=== PATIENT | male | born 1935 | race Asian ===

== ENCOUNTER 2018-10-23 08:01 | Inpatient (IN) | payer MEDICARE, MEDICAID ==
[~2018-10-23] VITALS: Ht 162.6 cm; Wt 56.9 kg
[2018-10-23] MEDS ORDERED: ATORVASTATIN CA20 MG ORAL (08:06)
[2018-10-23] MEDS ORDERED: TAMSULOSIN HCL0.4 MG ORAL (08:06)
[2018-10-23] MEDS ORDERED: WARFARIN SODIUM3 MG ORAL (08:06)
[2018-10-23] MEDS ORDERED: DONEPEZIL HCL5 MG ORAL (08:06)
[2018-10-23] MEDS ORDERED: LOSARTAN POTASS50 MG ORAL (08:06)
[2018-10-23] MEDS ORDERED: PRILOSEC OTC20 MG ORAL (08:06)
[2018-10-23] MEDS ORDERED: PROSCAR5 MG ORAL (08:06)
[2018-10-23] MEDS ORDERED: AMLODIPINE BESY10 MG ORAL (08:06)
[2018-10-23] MEDS ORDERED: ZETIA10 MG ORAL (08:06)
[2018-10-23 08:07] VITALS: BP 148/65
--- NOTE | 2018-10-23 08:13 | NUR ---
ED Nurse Note: Patient Brought in to ER by ambulance from home due to SOB. pt is restless with SOB upon arrival but aao x4. pt has pacemaker on Lt upper chest, skin dry but no pressure ulcer or wound, has O2 mask with 4L/min O2 administrating, 20 G iv on Lt forearm by EMS. VSS. at bedside.
--- NOTE | 2018-10-23 08:20 | Emergency Room Report ---
History of Present Illness General Chief Complaint: Dyspnea/Respdistress Source: Patient, Family Member, EMS Present Illness HPI Patient presents with complaints of shortness of breath Patient was at home and his was leaving when she noticed that he was breathing heavier than usual and contacted the paramedics reports that the patient just recently about 1 month ago had a pacemaker put in Family and the patient himself did not recognize the word of atrial fibrillation also did not think that the patient has history of irregular heart rate however patient is on Coumadin and appears to be in atrial fibrillation at this time denies any other chest pain his breathing is worse with laying flat Denies any cough denies any vomiting or diarrhea denies any recent travel denies any pleurisy Allergies: Coded Allergies: No Known Allergies (Unverified , 10/23/18) Patient History Past Medical History: see triage record Pertinent Family History: none Reviewed Nursing Documentation: PMH: Agreed; PSxH: Agreed Nursing Documentation-PMH Past Medical History: No History, Except For Hx Cardiac Problems: Yes Hx Pacemaker: Yes Hx COPD: Yes Review of Systems All Other Systems: negative except mentioned in HPI Physical Exam Vital Signs Date Time Temp Pulse Resp B/P (MAP) Pulse Ox O2 Delivery O2 Flow Rate FiO2 10/23/18 07:58 98.1 64 20 136/58 99 Room Air 10/23/18 08:07 4.0 100 Sp02 EP Interpretation: reviewed, normal General Appearance: mild distress - Appears short of breath tachypneic Head: normocephalic, atraumatic Eyes: bilateral eye PERRL, bilateral eye EOMI ENT: hearing grossly normal, normal pharynx, TMs + canals normal, uvula midline Neck: full range of motion, supple, no meningismus, no bony tend Respiratory: no rhonchi, no respiratory distress, no retraction, no accessory muscle use, crackles - Bilaterally and tachypneic Cardiovascular #1: normal peripheral pulses, no gallop, no JVD, no murmur, irregularly irregular Gastrointestinal: normal bowel sounds, non tender, soft, no mass, no organomegaly, non-distended, no guarding, no hernia, no pulsatile mass, no rebound Genitourinary: no CVA tenderness Musculoskeletal: normal inspection Neurologic: oriented x3, responsive, residential coordinator III-XII nml as tested, motor strength/ tone normal, sensory intact Psychiatric: mood/affect normal Skin: no rash, warm/dry, other Lymphatic: normal inspection, no adenopathy Procedures Critical Care Time Critical Care Time 40 minutes for multiple re-evaluations, clinical presentation was concern for respiratory failure not including any procedural time Medical Decision Making Diagnostic Impression: Primary Impression: Dyspnea Additional Impressions: CHF (congestive heart failure) COPD (chronic obstructive pulmonary disease) ER Course Patient is a fairly complex patient with multiple differential to consideration including but not limited to cardiac cardiopulmonary and vascular emergencies Patient's ABG does reveal mildly low pH with a mildly elevated PCO2 consistent with COPD exacerbation X-ray imaging also shows significant effusion cardiomegaly Patient was provided with diuretics BiPAP was initiated and as the patient has done better was removed Patient will be admitted to telemetry bed and examined by process architect in the ER Labs Test 10/23/18 08:30 10/23/18 08:35 White Blood Count 7.1 K/UL (4.8-10.8) Red Blood Count 3.37 M/UL (4.70-6.10) Hemoglobin 10.2 G/DL (14.2-18.0) Hematocrit 31.8 % (42.0-52.0) Mean Corpuscular Volume 94 FL (80-99) Mean Corpuscular Hemoglobin 30.3 PG (27.0-31.0) Mean Corpuscular Hemoglobin Concent 32.1 G/DL (32.0-36.0) Red Cell Distribution Width 15.9 % (11.6-14.8) Platelet Count 177 K/UL (150-450) Mean Platelet Volume 8.0 FL (6.5-10.1) Neutrophils (%) (Auto) 60.1 % (45.0-75.0) Lymphocytes (%) (Auto) 26.4 % (20.0-45.0) Monocytes (%) (Auto) 10.6 % (1.0-10.0) Eosinophils (%) (Auto) 2.0 % (0.0-3.0) Basophils (%) (Auto) 1.0 % (0.0-2.0) Prothrombin Time 74.0 SEC (9.30-11.50) Prothromb Time International Ratio 7.8 (0.9-1.1) Activated Partial Thromboplast Time 55 SEC (23-33) Sodium Level 137 MMOL/L (136-145) Potassium Level 4.3 MMOL/L (3.5-5.1) Chloride Level 103 MMOL/L (98-107) Carbon Dioxide Level 24 MMOL/L (21-32) Anion Gap 11 mmol/L (5-15) Blood Urea Nitrogen 24 mg/dL (7-18) Creatinine 1.6 MG/DL (0.55-1.30) Estimat Glomerular Filtration Rate mL/min (>60) Glucose Level 101 MG/DL (74-106) Calcium Level 8.9 MG/DL (8.5-10.1) Total Bilirubin 1.5 MG/DL (0.2-1.0) Direct Bilirubin 0.4 MG/DL (0.0-0.3) Aspartate Amino Transf (AST/SGOT) 24 U/L (15-37) Alanine Aminotransferase (ALT/SGPT) 11 U/L (12-78) Alkaline Phosphatase 178 U/L (46-116) Total Creatine Kinase 137 U/L (26-308) Creatine Kinase MB 2.7 NG/ML (0.0-3.6) Creatine Kinase MB Relative Index 1.9 Troponin I 0.015 ng/mL (0.000-0.056) Pro-B-Type Natriuretic Peptide 3472 pg/mL (0-125) Total Protein 8.0 G/DL (6.4-8.2) Albumin 3.6 G/DL (3.4-5.0) Globulin 4.4 g/dL Albumin/Globulin Ratio 0.8 (1.0-2.7) Lipase 225 U/L (73-393) Arterial Blood pH 7.288 (7.350-7.450) Arterial Blood Partial Pressure CO2 49.8 mmHg (35.0-45.0) Arterial Blood Partial Pressure O2 37.0 mmHg (75.0-100.0) Arterial Blood HCO3 23.3 mmol/L (22.0-26.0) Arterial Blood Oxygen Saturation 61.9 % (95-100) Arterial Blood Base Excess -3.5 (-2-2) [place] Test Positive EKG Diagnostic Results Rate: bradycardiac Rhythm: other ST Segments: other - Irregularly irregular, nonspecific ST changes Rhythm Strip Diag. Results EP Interpretation: yes Rate: 56 Rhythm: no PVC's, no ectopy, other - Atrial fibrillation Chest X-Ray Diagnostic Results Chest X-Ray Diagnostic Results : Chest X-Ray Ordered: Yes # of Views/Limited/Complete: 1 View Indication: Shortness of Breath EP Interpretation: Yes Interpretation: no pneumothorax, other - Cardiomegaly, pulmonary congestion , large right-sided effusion Impression: Other - Acute CHF, large effusion Electronically Signed by: Abdoul Toussaint DO Last Vital Signs Date Time Temp Pulse Resp B/P (MAP) Pulse Ox O2 Delivery O2 Flow Rate FiO2 10/23/18 08:07 98.1 59 20 148/65 99 Room Air 4.0 10/23/18 08:07 100 Status: improved Disposition: ADMITTED INPATIENT Condition: Critical Referrals: NON PHYSICIAN (PCP) Abdoul Toussaint DO Oct 23, 2018 08:20
--- NOTE | 2018-10-23 08:28 | NUR ---
ED Nurse Note: New iv line made with 20G on Rt wrist for blood culture.
[2018-10-23 08:37] LABS: HEMATOCRIT 31.8 % (42.0-52.0); HEMOGLOBIN 10.2 G/DL (14.2-18.0); LYMPHOCYTES % (AUTO) 26.4 % (20.0-45.0); MEAN CORPUSCULAR VOLUME 94 FL (80-99); MONOCYTES % (AUTO) 10.6 % (1.0-10.0); NEUTROPHILS % (AUTO) 60.1 % (45.0-75.0); PLATELET COUNT 177 K/UL (150-450); RED BLOOD COUNT 3.37 M/UL (4.70-6.10); RED CELL DISTRIBUTION WIDTH 15.9 % (11.6-14.8); WHITE BLOOD COUNT 7.1 K/UL (4.8-10.8)
[2018-10-23 08:53] LABS: ANION GAP 11 mmol/L (5-15); BLOOD UREA NITROGEN 24 mg/dL (7-18); CALCIUM 8.9 MG/DL (8.5-10.1); CARBON DIOXIDE 24 MMOL/L (21-32); CHLORIDE 103 MMOL/L (98-107); CREATININE 1.6 MG/DL (0.55-1.30); POTASSIUM 4.3 MMOL/L (3.5-5.1); SODIUM 137 MMOL/L (136-145)
[2018-10-23 09:14] LABS: ALANINE AMINOTRANSFERASE 11 U/L (12-78); ALBUMIN 3.6 G/DL (3.4-5.0); ALBUMIN/GLOBULIN RATIO 0.8 (1.0-2.7); ALKALINE PHOSPHATASE 178 U/L (46-116); ASPARTATE AMINO TRANSFERASE 24 U/L (15-37); BILIRUBIN,TOTAL 1.5 MG/DL (0.2-1.0); CREATINE KINASE 137 U/L (26-308)
[2018-10-23 09:15] LABS: BILIRUBIN,DIRECT 0.4 MG/DL (0.0-0.3)
[2018-10-23 09:35] LABS: CKMB 2.7 NG/ML (0.0-3.6)
[2018-10-23 09:52] LABS: INR 7.8 (0.9-1.1)
--- NOTE | 2018-10-23 10:06 | NUR ---
ED Nurse Note: RT put pt on Bipap. setting was documented.
--- NOTE | 2018-10-23 10:56 | NUR ---
ED Nurse Note: Bipap removed and pt is on NC 3L/min and sturating 100%.
--- NOTE | 2018-10-23 11:00 | NUR ---
ED Nurse Note: Report given to LOLIS Franco. pt is ready to be transferred.
[2018-10-23 11:14] VITALS: BP 125/74
--- NOTE | 2018-10-23 11:16 | NUR ---
ED Nurse Note: Pt was transferred to Telemetry unit with 1 airframe technical officer and 1 RN in stable condition.
--- NOTE | 2018-10-23 11:20 | NUR ---
NURSE NOTES: I received patient from the ER. Patient alert and oriented x4. Patient's belongings reviewed and verified with ER nurse. Patient oriented to room and the use of the call light. Bed in the lowest position and call light within reach. Patient does not display any signs of distress or SOB.
[2018-10-23 11:35] VITALS: BP 130/62
--- NOTE | 2018-10-23 11:48 | Diagnostic Imaging Report ---
Indication: Dyspnea Comparison: None A single view chest radiograph was obtained. Findings: Interstitial edema prominent vascularity and heart size noted. Left-sided pacemaker and sternotomy are noted. There is a right pleural effusion which may be partially loculated. There is a horizontal density about the minor fissure probably representing fluid in the fissure. Slight blunting of the left costophrenic angle also noted. IMPRESSION: CHF/interstitial edema. Suspected bilateral pleural effusions as described above
--- NOTE | 2018-10-23 13:58 | Consultation ---
Consult Note Consult Note asked to eval by Dr Mobley for renal failure- Patient presents with complaints of shortness of breath Patient was at home and his was leaving when she noticed that he was breathing heavier than usual and contacted the paramedics reports that the patient just recently about 1 month ago had a pacemaker put in Family and the patient himself did not recognize the word of atrial fibrillation also did not think that the patient has history of irregular heart rate however patient is on Coumadin and appears to be in atrial fibrillation at this time denies any other chest pain his breathing is worse with laying flat Denies any cough denies any vomiting or diarrhea denies any recent travel denies any pleurisy No Known Allergies (Unverified , 10/23/18) Past Medical History: No History, Except For Hx Cardiac Problems: Yes Hx Pacemaker: Yes Hx COPD: Yes patient examined data reviewed Assessment/Plan Renal failure- ? Chronic / Cardio Renal Pacer CHF COPD Anemia Over anti coagulation, INR 7.8 Lasix Protonix monitor INR parameters for bp meds UA 2D echo Anemia Seferino Tafoya MD Oct 23, 2018 13:58
[2018-10-23 14:15] VITALS: BP 118/61
[2018-10-23 16:00] VITALS: BP 126/58
[2018-10-23 18:10] LABS: APPEARANCE,URINE CLEAR; BILIRUBIN, URINE NEGATIVE (NEGATIVE); COLOR,URINE PALE YELLOW; GLUCOSE, URINE (UA) NEGATIVE (NEGATIVE); KETONES,URINE NEGATIVE (NEGATIVE); NITRITE,URINE NEGATIVE (NEGATIVE); PROTEIN,URINE NEGATIVE (NEGATIVE); UROBILINOGEN,URINE NORMAL MG/DL (0.0-1.0)
--- NOTE | 2018-10-23 18:19 | NUR ---
CASE MANAGEMENT: INITIAL REVIEW 83 YO M PABLO FROM HOME CC: SOB PMHx: COPD. PACER. SI: DYSPNEA. T 98.1 HR 64 RR 20 B/P 136/58 SATS 99% ON RA BUN 24 CR 1.6 TBILI 1.5 DBILI 0.4 ALT 11 ALP 178 BNP 3472 ABGs PH 7.288 pCO2 49.8 PO2 37 O2 SAT 61.9 BE -3.5 IS:CXR (IMPRESSION: CHF/interstitial edema) PATIENT ADMITTED TO TELE 10/23/2018 @ 0834 DCP: PATIENT TO BE DISCHARGED TO HOME ONCE MEDICALLY CLEARED. PLAN OF CARE: DIURESIS UA 2D echo Addendum: 10/23/18 at 1909 by Adry Locke CM INTERQUAL MET FOR ACUTE
[2018-10-23 18:22] LABS: LEUKOCYTE ESTERASE ,URINE NEGATIVE (NEGATIVE); PH,URINE 5 (4.5-8.0)
--- NOTE | 2018-10-23 19:15 | History and Physical Report ---
DATE OF ADMISSION: 10/23/2018 HISTORY OF PRESENT ILLNESS: This is a very pleasant 83-year-old male who has a history of lung cancer. His daughter at bedside reports that he has previously had two lung surgeries. She is unclear about which side, but she states that it was in 2010 and 2012. The lung cancer apparently is in remission. The patient reports that he had a pacemaker placed on the left side of the chest and that he has not been on Coumadin. He came to the hospital with shortness of breath. His initial venous ABGs showed pH 7.28 with pCO2 50. At this time, he states he is feeling well. X-ray of the chest has shown right-sided effusion and evidence of previous right lung surgery. He also has elevated BNP suggestive of heart failure. PAST MEDICAL HISTORY: Notable for permanent pacemaker, COPD, lung cancer, CHF. PREVIOUS SURGICAL HISTORY: Include pacemaker implantation and x2. REVIEW OF SYSTEMS: The patient denies any headaches, hematemesis, melena, or hematochezia. PHYSICAL EXAMINATION: GENERAL: Revealed an 83-year-old male. HEENT: Unremarkable. CHEST: Exam showed decreased breath sounds bilaterally with decreased breath sounds on the right side. ABDOMEN: Soft. EXTREMITIES: There is no edema. NEUROLOGIC: Nonfocal. LABORATORY DATA: Lab testing shows hemoglobin 10.2, creatinine 1.6, bilirubin 1.5. Alkaline phosphatase 178, ALT 11. ProBNP is elevated. Troponin is negative. ABG/venous gas shows 7.28, pCO2 49, and pO2 37. IMPRESSION: 1. Decompensated congestive heart failure. 2. History of lung cancer. 3. COPD. 4. Renal insufficiency. 5. Permanent pacemaker. 6. Chronic Coumadin usage. DISCUSSION: Admitted to the hospital. I will continue his home medications. We will increase diuresis, consider BiPAP. We will consult Cardiology, may give low-dose steroids and respiratory treatments with albuterol and Atrovent. We will follow carefully. Jaydon Mobley M.D. DR: LASHAY/HERSON JOB#: [id number] CC:
--- NOTE | 2018-10-23 19:20 | NUR ---
NURSE NOTES: Received pt. and report from LOLIS Franco. Observe pt. resting in bed with both eyes open. Pt. is A/Ox4. monitoring and evaluation advisor is in placed, IV site intact, asymptomatic, and patent. Bed is in the lowest position and locked. Call light within reach. No SOB or acute distress noted at this time. Will continue plan of care.
--- NOTE | 2018-10-23 19:30 | NUR ---
HAND-OFF: Report given to LOLIS Tenorio.
[2018-10-23 20:00] VITALS: BP 130/59
[2018-10-23] MEDS: Tamsulosin 0.4mg cap ORAL SCH (20:53)
[2018-10-24] VITALS (7 sets, daily range): BP systolic 119–136; BP diastolic 56–75
--- NOTE | 2018-10-24 06:00 | Consultation ---
DATE OF CONSULTATION: 10/23/2018 CARDIOLOGY CONSULTATION CONSULTING PHYSICIAN: Charles Jarvis M.D. REASON FOR CONSULTATION: Shortness of breath. HISTORY OF PRESENT ILLNESS: This is an 83-year-old male with lung cancer and prior pneumonectomy, who is now in remission. He came to the emergency room with shortness of breath. He was noted to have an abnormal ABG with respiratory acidosis and an abnormal chest x-ray revealing a right-sided pleural effusion and loss of volume on the right, and natriuretic peptide assay over 1600, suggesting congestive heart failure. I have been asked to address all his findings and further management for his shortness of breath. The patient is without any chest pain, without any palpitations, and has not had any leg swelling. PAST MEDICAL HISTORY: COPD, lung cancer, permanent pacemaker, hypertension, congestive heart failure, chronic kidney disease, and paroxysmal atrial fibrillation. ALLERGIES: None known. MEDICATIONS: Prior to admission, reviewed and reconciled. SOCIAL HISTORY: Prior smoker. No alcohol or substance abuse. REVIEW OF SYSTEMS: Otherwise, a 10-point review of systems performed that revealed positive findings as noted above, otherwise negative. PHYSICAL EXAMINATION: VITAL SIGNS: Afebrile, blood pressure 136/58, pulse 64, and respiratory rate 20. HEENT: Conjunctivae are pink. Oropharynx clear. NECK: Supple. Jugular venous pressure elevated. No accessory muscle use. LUNGS: Diminished breath sounds. Scattered rales. CARDIAC: Regular rhythm and rate. Normal S1, paradoxically split S2. A 1/6 systolic apical murmur. ABDOMEN: Soft and nontender. EXTREMITIES: No edema. LABORATORY DATA: White count 7.1 and hemoglobin 10.2. INR 7.8. Sodium 137, potassium 4.3, bicarbonate 24, BUN 24, and creatinine 1.6. ABG - 7.29, 49, and 37. Pro-natriuretic peptide 3400. Troponin negative. EKG is a paced rhythm. IMPRESSION: 1. Acute bronchospasm. 2. Asthma exacerbation. 3. Acute on chronic diastolic congestive heart failure. 4. Permanent pacemaker. 5. Paroxysmal atrial fibrillation. 6. Coagulopathy due to warfarin. PLAN: Hold warfarin, re-dose INR 2.5. Diuresis. Titrate anti-failure regimen. Empiric antibiotics. Respiratory hygiene. We will attempt to obtain data regarding pacemaker interrogation device. Thank you for this consultation. Charles Jarvis M.D. DR: MARTHA JOB#: [id number] CC:
[2018-10-24 07:10] LABS: INR 6.6 (0.9-1.1)
--- NOTE | 2018-10-24 07:18 | NUR ---
HAND-OFF: Report given to LOLIS Franco.
--- NOTE | 2018-10-24 07:22 | NUR ---
NURSE NOTES: Received INR (6.6) result from lab, [facility]. INR is trending down. Endorsed to LOLIS Franco.
--- NOTE | 2018-10-24 07:25 | NUR ---
NURSE NOTES: I received the patient awake and eating breakfast in bed. Patient alert and oriented x4. Patient does not display any signs of distress or SOB. Bed in the lowest position and call light within reach. I will continue to monitor the patient and implement care.
[2018-10-24 07:36] LABS: BASOPHILS % (AUTO) 1.3 % (0.0-2.0); EOSINOPHILS % (AUTO) 2.9 % (0.0-3.0); HEMATOCRIT 29.5 % (42.0-52.0); HEMOGLOBIN 9.7 G/DL (14.2-18.0); LYMPHOCYTES % (AUTO) 21.1 % (20.0-45.0); MEAN CORPUSCULAR VOLUME 94 FL (80-99); MONOCYTES % (AUTO) 10.1 % (1.0-10.0); NEUTROPHILS % (AUTO) 64.5 % (45.0-75.0); PLATELET COUNT 184 K/UL (150-450); RED BLOOD COUNT 3.13 M/UL (4.70-6.10); RED CELL DISTRIBUTION WIDTH 15.8 % (11.6-14.8); WHITE BLOOD COUNT 6.2 K/UL (4.8-10.8)
[2018-10-24 07:42] LABS: % IRON SATURATION 13 % (15-50); IRON 34 ug/dL (50-175); TOTAL IRON BINDING CAPACITY 262 ug/dL (250-450)
[2018-10-24 07:44] LABS: ALANINE AMINOTRANSFERASE 16 U/L (12-78); ALBUMIN 3.3 G/DL (3.4-5.0); ALBUMIN/GLOBULIN RATIO 0.8 (1.0-2.7); ALKALINE PHOSPHATASE 172 U/L (46-116); ANION GAP 7 mmol/L (5-15); ASPARTATE AMINO TRANSFERASE 24 U/L (15-37); BILIRUBIN,TOTAL 1.1 MG/DL (0.2-1.0); BLOOD UREA NITROGEN 25 mg/dL (7-18); CALCIUM 9.1 MG/DL (8.5-10.1); CARBON DIOXIDE 29 MMOL/L (21-32); CHLORIDE 103 MMOL/L (98-107); CHOLESTEROL 98 MG/DL (< 200); CREATINE KINASE 108 U/L (26-308); CREATININE 1.7 MG/DL (0.55-1.30); FERRITIN 66 NG/ML (8-388); GAMMA GLUTAMYL TRANSPEPTIDASE 81 U/L (5-85); HDL CHOLESTEROL 51 MG/DL (40-60); PHOSPHORUS 3.9 MG/DL (2.5-4.9); POTASSIUM 4.4 MMOL/L (3.5-5.1); SODIUM 139 MMOL/L (136-145); TRIGLYCERIDES 36 MG/DL (30-150)
[2018-10-24 07:46] LABS: BILIRUBIN,DIRECT 0.3 MG/DL (0.0-0.3)
[2018-10-24] MEDS: Donepezil 5mg Tab ORAL SCH (08:21)
[2018-10-24] MEDS: Losartan 50mg tab ORAL SCH (08:21)
[2018-10-24] MEDS ORDERED: Warfarin Sodium 3mg ORAL SCH (09:00)
[2018-10-24] MEDS ORDERED: Losartan 50mg tab ORAL SCH (09:00)
--- NOTE | 2018-10-24 09:19 | Pulmonology Progress Note ---
Assessment/Plan Assessment/Plan 1. Decompensated congestive heart failure. 2. History of lung cancer. 3. COPD. 4. Renal insufficiency. 5. Permanent pacemaker. 6. Chronic Coumadin usage. DISCUSSION: I will continue his home medications. Continue diuresis, consider BiPAP (he uses it at home). Seen by cardiology Cardiology Continue low-dose steroids and respiratory treatments with albuterol and Atrovent. I will follow carefully. Monitor coagulopathy Jaydon Mobley M.D. Subjective Interval Events: INR 6.6; feeling better Constitutional: Reports: no symptoms HEENT: Repors: no symptoms Respiratory: Reports: dry cough, shortness of breath Cardiovascular: Reports: no symptoms Gastrointestinal/Abdominal: Reports: no symptoms Genitourinary: Reports: no symptoms Allergies: Coded Allergies: No Known Allergies (Unverified , 10/23/18) Objective Last 24 Hour Vital Signs Date Time Temp Pulse Resp B/P (MAP) Pulse Ox O2 Delivery O2 Flow Rate FiO2 10/24/18 08:22 85 124/75 10/24/18 08:21 124/75 10/24/18 07:55 98.2 85 18 124/75 (91) 95 10/24/18 04:00 97.4 59 18 120/65 (83) 98 10/24/18 04:00 59 10/24/18 00:36 97.2 60 18 130/59 (82) 96 10/24/18 00:00 59 10/24/18 00:00 97.8 60 18 136/63 (87) 97 10/23/18 21:00 Nasal Cannula 3.0 10/23/18 20:00 60 10/23/18 20:00 97.2 60 18 130/59 (82) 96 10/23/18 18:08 63 10/23/18 16:00 97.5 60 21 126/58 (80) 10/23/18 14:15 118/61 (80) 10/23/18 11:50 60 10/23/18 11:35 97.5 60 130/62 (84) 10/23/18 11:26 Nasal Cannula 3.0 10/23/18 11:14 98.1 87 18 125/74 100 Nasal Cannula 3.0 10/23/18 11:14 98.1 61 18 125/74 100 Nasal Cannula 3.0 100 10/23/18 09:45 58 16 100 Facial 100 Intake and Output 10/23/18 10/24/18 19:00 07:00 Intake Total 0 ml Output Total 200 ml Balance -200 ml Intake Oral 0 ml Output Urine Total 200 ml # Voids 3 General Appearance: no acute distress HEENT: normocephalic Respiratory/Chest: chest wall non-tender, lungs clear Cardiovascular: normal peripheral pulses, normal rate Abdomen: normal bowel sounds Laboratory Tests 10/23/18 17:00: Urine Color Pale yellow, Urine Appearance Clear, Urine pH 5, Urine Specific [place] 1.005, Urine Protein Negative, Urine Glucose (UA) Negative, Urine Ketones Negative, Urine Blood Negative, Urine Nitrite Negative, Urine Bilirubin Negative, Urine Urobilinogen Normal, Urine Leukocyte Esterase Negative, Urine RBC 0-2H, Urine WBC 0-2, Urine Squamous Epithelial Cells None, Urine Bacteria Few 10/24/18 04:50: White Blood Count 6.2, Red Blood Count 3.13L, Hemoglobin 9.7L, Hematocrit 29.5L , Mean Corpuscular Volume 94, Mean Corpuscular Hemoglobin 30.9, Mean Corpuscular Hemoglobin Concent 32.8, Red Cell Distribution Width 15.8H, Platelet Count 184, Mean Platelet Volume 5.4L, Neutrophils (%) (Auto) 64.5, Lymphocytes (%) (Auto) 21.1, Monocytes (%) (Auto) 10.1H, Eosinophils (%) (Auto) 2.9, Basophils (%) (Auto) 1.3, Prothrombin Time 62.7H, Prothromb Time International Ratio 6.6*H, Sodium Level 139, Potassium Level 4.4, Chloride Level 103, Carbon Dioxide Level 29, Anion Gap 7, Blood Urea Nitrogen 25H, Creatinine 1.7H, Estimat Glomerular Filtration Rate , Glucose Level 88, Hemoglobin A1c 6.6H, Uric Acid 10.3H, Calcium Level 9.1, Phosphorus Level 3.9, Magnesium Level 1.8, Iron Level 34L, Total Iron Binding Capacity 262, Percent Iron Saturation 13L, Unsaturated Iron Binding 228, Ferritin 66, Total Bilirubin 1.1H, Direct Bilirubin 0.3, Gamma Glutamyl Transpeptidase 81, Aspartate Amino Transf (AST/SGOT) 24, Alanine Aminotransferase (ALT/SGPT) 16, Alkaline Phosphatase 172H, Total Creatine Kinase 108, Troponin I 0.020, Pro-B-Type Natriuretic Peptide 4070H, Total Protein 7.3, Albumin 3.3L, Globulin 4.0, Albumin/Globulin Ratio 0.8L, Triglycerides Level 36, Cholesterol Level 98, LDL Cholesterol 39, HDL Cholesterol 51, Cholesterol/HDL Ratio 1.9L, Vitamin B12 Level 437, Folate 11.1, Thyroid Stimulating Hormone (TSH) 1.249 Current Medications Medications (Trade) Dose Ordered Sig/Jazlyn Route PRN Reason Start Time Stop Time Status Last Admin Dose Admin Amlodipine Besylate (Norvasc) 10 mg DAILY ORAL 10/24/18 09:00 11/23/18 08:59 10/24/18 08:22 Atorvastatin Calcium (Lipitor) 20 mg BEDTIME ORAL 10/23/18 21:00 11/22/18 20:59 10/23/18 20:52 Donepezil HCl (Aricept) 5 mg DAILY ORAL 10/24/18 09:00 11/23/18 08:59 10/24/18 08:21 EZETIMIBE (Zetia) 10 mg BEDTIME ORAL 10/23/18 21:00 11/22/18 20:59 10/23/18 20:53 Finasteride (Proscar) 5 mg DAILY ORAL 10/24/18 09:00 11/23/18 08:59 10/24/18 08:21 Furosemide (Lasix) 40 mg EVERY 8 HOURS IV 10/23/18 14:00 11/22/18 13:59 10/24/18 05:48 Losartan Potassium (Cozaar) 50 mg DAILY ORAL 10/24/18 09:00 11/23/18 08:59 10/24/18 08:21 Pantoprazole (Protonix) 40 mg EVERY 12 HOURS ORAL 10/23/18 21:00 11/22/18 20:59 10/24/18 08:21 Tamsulosin HCl (Flomax) 0.4 mg BEDTIME ORAL 10/23/18 21:00 11/22/18 20:59 10/23/18 20:53 Warfarin Sodium (Coumadin per pharmacy) 1 ea DAILY PRN MISC Per rx protocol 10/23/18 12:00 11/22/18 11:59 Jaydon Mobley MD Oct 24, 2018 09:19
--- NOTE | 2018-10-24 12:34 | NUR ---
RADIOLOGY DEPT CHEST X-RAY DONE.-P.DYE
--- NOTE | 2018-10-24 14:09 | Diagnostic Imaging Report ---
Indication: Cough Technique: One view of the chest Comparison: 10/23/2018 Findings: Bilateral pleural effusions and bilateral interstitial and airspace edema persists, unchanged. The heart is enlarged. Left chest pacemaker again demonstrated Impression: Unchanged, over one day, findings as above.
--- NOTE | 2018-10-24 19:26 | NUR ---
HAND-OFF: Report given to LOLIS Anderson.
--- NOTE | 2018-10-24 20:00 | NUR ---
NURSE NOTES: Received pt in stable condition from Joan DANIELLE. pt in bed resting comfortable, no acute distress during day, no pain reported by pt at this time. will continue to monitor
[2018-10-24] MEDS: Atorvastatin 20mg tab ORAL SCH (20:41)
[2018-10-24] MEDS: Tamsulosin 0.4mg cap ORAL SCH (20:41)
--- NOTE | 2018-10-24 21:41 | Nephrology Progress Note ---
Assessment/Plan Problem List: (1) Renal failure (ARF), acute on chronic (2) CHF (congestive heart failure) (3) Pacemaker (4) Acute bronchospasm Assessment Renal failure- ? Chronic / Cardio Renal Pacer CHF COPD Anemia Over anti coagulation, INR 7.8 Plan Lasix Protonix monitor INR parameters for bp meds UA 2D echo Anemia schmitt IV Iron Subjective ROS Limited/Unobtainable: No Constitutional: Reports: malaise Objective Objective Last 24 Hour Vital Signs Date Time Temp Pulse Resp B/P (MAP) Pulse Ox O2 Delivery O2 Flow Rate FiO2 10/24/18 20:00 98.1 62 20 129/56 (80) 92 10/24/18 20:00 60 10/24/18 16:11 60 10/24/18 15:44 98.1 65 20 119/56 (77) 96 10/24/18 11:59 97.9 60 20 122/56 (78) 93 10/24/18 11:57 69 10/24/18 09:00 Nasal Cannula 3.0 10/24/18 08:22 85 124/75 10/24/18 08:21 124/75 10/24/18 07:55 98.2 85 18 124/75 (91) 95 10/24/18 07:35 60 10/24/18 04:00 97.4 59 18 120/65 (83) 98 10/24/18 04:00 59 10/24/18 00:36 97.2 60 18 130/59 (82) 96 10/24/18 00:00 59 10/24/18 00:00 97.8 60 18 136/63 (87) 97 Intake and Output 10/23/18 10/24/18 18:59 06:59 Intake Total 0 ml Output Total 200 ml Balance -200 ml Intake Oral 0 ml Output Urine Total 200 ml # Voids 3 Laboratory Tests 10/24/18 04:50: White Blood Count 6.2, Red Blood Count 3.13L, Hemoglobin 9.7L, Hematocrit 29.5L , Mean Corpuscular Volume 94, Mean Corpuscular Hemoglobin 30.9, Mean Corpuscular Hemoglobin Concent 32.8, Red Cell Distribution Width 15.8H, Platelet Count 184, Mean Platelet Volume 5.4L, Neutrophils (%) (Auto) 64.5, Lymphocytes (%) (Auto) 21.1, Monocytes (%) (Auto) 10.1H, Eosinophils (%) (Auto) 2.9, Basophils (%) (Auto) 1.3, Prothrombin Time 62.7H, Prothromb Time International Ratio 6.6*H, Sodium Level 139, Potassium Level 4.4, Chloride Level 103, Carbon Dioxide Level 29, Anion Gap 7, Blood Urea Nitrogen 25H, Creatinine 1.7H, Estimat Glomerular Filtration Rate , Glucose Level 88, Hemoglobin A1c 6.6H, Uric Acid 10.3H, Calcium Level 9.1, Phosphorus Level 3.9, Magnesium Level 1.8, Iron Level 34L, Total Iron Binding Capacity 262, Percent Iron Saturation 13L, Unsaturated Iron Binding 228, Ferritin 66, Total Bilirubin 1.1H, Direct Bilirubin 0.3, Gamma Glutamyl Transpeptidase 81, Aspartate Amino Transf (AST/SGOT) 24, Alanine Aminotransferase (ALT/SGPT) 16, Alkaline Phosphatase 172H, Total Creatine Kinase 108, Troponin I 0.020, Pro-B-Type Natriuretic Peptide 4070H, Total Protein 7.3, Albumin 3.3L, Globulin 4.0, Albumin/Globulin Ratio 0.8L, Triglycerides Level 36, Cholesterol Level 98, LDL Cholesterol 39, HDL Cholesterol 51, Cholesterol/HDL Ratio 1.9L, Vitamin B12 Level 437, Folate 11.1, Thyroid Stimulating Hormone (TSH) 1.249 Height (Feet): 5 Height (Inches): 4.00 Weight (Pounds): 160 General Appearance: no apparent distress Cardiovascular: normal rate Respiratory/Chest: decreased breath sounds Abdomen: soft Seferino Lezama MD Oct 24, 2018 21:41
[2018-10-24] MEDS ORDERED: Iron Sucrose 200 MG in NS 110 ML IV SCH (23:00)
[2018-10-25] VITALS: BP 112/51
--- NOTE | 2018-10-25 00:30 | Progress Note ---
DATE: 10/24/2018 CARDIOLOGY PROGRESS NOTE OBJECTIVE: The patient is still short of breath. Diuresis is ongoing with intravenous furosemide. Warfarin is on hold due to elevated INR on admission. OBJECTIVE: VITAL SIGNS: Blood pressure 129/56, pulse 63, and respirations 20. NECK: Jugular venous pressure elevated. LUNGS: Bilateral rales. CARDIAC: Regular rhythm and rate. Normal S1, S2. A 1/6 systolic apical murmur. ABDOMEN: Soft. EXTREMITIES: No edema. IMAGING: Chest x-ray reveals bilateral pleural effusion, interstitial edema unchanged, and left pacemaker. White count 6.2 and hemoglobin 9.7. INR 6.6. Potassium 4.4, BUN 25, and creatinine 1.7. Pro-natriuretic peptide 4000. Cholesterol 98. B12, folate, and thyroid function within normal limits. Iron saturation 13%. Troponin negative. IMPRESSION: 1. Acute on chronic systolic and diastolic congestive heart failure. 2. Paroxysmal atrial fibrillation. 3. Permanent pacemaker. 4. Pleural effusions. 5. Chronic kidney disease. 6. Low lipid panel, on dual anti-lipid therapy. 7. Iron deficiency with anemia. PLAN: 1. Discontinue Zetia. 2. Continue Lipitor. 3. Continue intravenous diuresis. 4. Await echocardiogram. 5. Advance anti-failure regimen. 6. Monitor cardiorenal parameters. 7. Iron replacement. 8. Stool occult blood test. Charles Jarvis M.D. DR: TRENT JOB#: [id number] CC:
--- NOTE | 2018-10-25 00:37 | NUR ---
NURSE NOTES: pt in bed resting, no acute distress, sob noted, will continue to monitor
[2018-10-25 04:00] VITALS: BP 101/40
--- NOTE | 2018-10-25 07:15 | NUR ---
NURSE NOTES: I received the patient awake and resting in bed. Patient alert and oriented x4. Patient does not display any signs of distress or SOB. Bed in the lowest position and call light within reach. I will continue to monitor the patient and implement care.
--- NOTE | 2018-10-25 07:17 | NUR ---
HAND-OFF: Report given to jeannie DANIELLE.pt stable no change in condition during my shift. all needs met during my shift.
[2018-10-25 07:54] VITALS: BP 122/54
[2018-10-25] MEDS: Donepezil 5mg Tab ORAL SCH (08:09)
[2018-10-25] MEDS: Losartan 50mg tab ORAL SCH (08:09)
[2018-10-25 08:21] LABS: BASOPHILS % (AUTO) 1.2 % (0.0-2.0); EOSINOPHILS % (AUTO) 2.3 % (0.0-3.0); HEMATOCRIT 29.8 % (42.0-52.0); HEMOGLOBIN 9.6 G/DL (14.2-18.0); LYMPHOCYTES % (AUTO) 25.1 % (20.0-45.0); MEAN CORPUSCULAR VOLUME 95 FL (80-99); MONOCYTES % (AUTO) 10.2 % (1.0-10.0); NEUTROPHILS % (AUTO) 61.2 % (45.0-75.0); PLATELET COUNT 183 K/UL (150-450); RED BLOOD COUNT 3.14 M/UL (4.70-6.10); RED CELL DISTRIBUTION WIDTH 15.7 % (11.6-14.8); WHITE BLOOD COUNT 5.7 K/UL (4.8-10.8)
[2018-10-25 08:22] LABS: INR 3.8 (0.9-1.1)
[2018-10-25 08:44] LABS: ANION GAP 6 mmol/L (5-15); BLOOD UREA NITROGEN 32 mg/dL (7-18); CALCIUM 9.4 MG/DL (8.5-10.1); CARBON DIOXIDE 34 MMOL/L (21-32); CHLORIDE 102 MMOL/L (98-107); CREATININE 1.8 MG/DL (0.55-1.30); POTASSIUM 4.2 MMOL/L (3.5-5.1); SODIUM 142 MMOL/L (136-145)
--- NOTE | 2018-10-25 09:23 | Pulmonology Progress Note ---
Assessment/Plan Assessment/Plan 1. Decompensated congestive heart failure. 2. History of lung cancer. 3. COPD. 4. Renal insufficiency. 5. Permanent pacemaker. 6. Chronic Coumadin usage. DISCUSSION: I will continue his home medications. Continue diuresis, consider BiPAP (he uses it at home). Seen by cardiology Cardiology Continue low-dose steroids and respiratory treatments with albuterol and Atrovent. I will follow carefully. Monitor coagulopathy DC planning Jaydon Mobley M.D. Subjective Interval Events: Looking better; CXR unchanged Constitutional: Reports: no symptoms HEENT: Repors: no symptoms Respiratory: Reports: no symptoms Cardiovascular: Reports: no symptoms Gastrointestinal/Abdominal: Reports: no symptoms Genitourinary: Reports: no symptoms Allergies: Coded Allergies: No Known Allergies (Unverified , 10/23/18) Objective Last 24 Hour Vital Signs Date Time Temp Pulse Resp B/P (MAP) Pulse Ox O2 Delivery O2 Flow Rate FiO2 10/25/18 08:09 122/54 10/25/18 08:09 60 122/54 10/25/18 07:54 97.3 60 18 122/54 (76) 98 10/25/18 04:00 60 10/25/18 04:00 98.0 60 20 101/40 (60) 100 10/25/18 00:00 60 10/25/18 00:00 97.5 90 20 112/51 (71) 99 10/24/18 21:00 Nasal Cannula 3.0 10/24/18 20:00 98.1 62 20 129/56 (80) 92 10/24/18 20:00 60 10/24/18 16:11 60 10/24/18 15:44 98.1 65 20 119/56 (77) 96 10/24/18 11:59 97.9 60 20 122/56 (78) 93 10/24/18 11:57 69 Intake and Output 10/24/18 10/25/18 19:00 07:00 Intake Total 740 ml 120 ml Output Total 1001 ml 1500 ml Balance -261 ml -1380 ml Intake Oral 740 ml IV Total 120 ml Output Urine Total 1001 ml 1500 ml # Voids 3 # Bowel Movements 2 General Appearance: no acute distress HEENT: normocephalic Respiratory/Chest: chest wall non-tender, lungs clear Cardiovascular: normal peripheral pulses, normal rate Abdomen: normal bowel sounds, soft, non tender Extremities: no cyanosis Microbiology Date/Time Source Procedure Growth Status 10/23/18 08:30 Blood Blood Culture - Preliminary NO GROWTH AFTER 24 HOURS Resulted 10/23/18 08:15 Blood Blood Culture - Preliminary NO GROWTH AFTER 24 HOURS Resulted Laboratory Tests 10/25/18 05:57: White Blood Count 5.7, Red Blood Count 3.14L, Hemoglobin 9.6L, Hematocrit 29.8L , Mean Corpuscular Volume 95, Mean Corpuscular Hemoglobin 30.4, Mean Corpuscular Hemoglobin Concent 32.1, Red Cell Distribution Width 15.7H, Platelet Count 183, Mean Platelet Volume 6.1L, Neutrophils (%) (Auto) 61.2, Lymphocytes (%) (Auto) 25.1, Monocytes (%) (Auto) 10.2H, Eosinophils (%) (Auto) 2.3, Basophils (%) (Auto) 1.2, Prothrombin Time 36.9H, Prothromb Time International Ratio 3.8H, Sodium Level 142, Potassium Level 4.2, Chloride Level 102, Carbon Dioxide Level 34H, Anion Gap 6, Blood Urea Nitrogen 32H, Creatinine 1.8H, Estimat Glomerular Filtration Rate , Glucose Level 97, Calcium Level 9.4, Magnesium Level 1.7L Current Medications Medications (Trade) Dose Ordered Sig/Jazlyn Route PRN Reason Start Time Stop Time Status Last Admin Dose Admin Amlodipine Besylate (Norvasc) 10 mg DAILY ORAL 10/24/18 09:00 11/23/18 08:59 10/25/18 08:09 Atorvastatin Calcium (Lipitor) 20 mg BEDTIME ORAL 10/24/18 21:00 11/22/18 20:59 10/24/18 20:41 Donepezil HCl (Aricept) 5 mg DAILY ORAL 10/24/18 09:00 11/23/18 08:59 10/25/18 08:09 Finasteride (Proscar) 5 mg DAILY ORAL 10/24/18 09:00 11/23/18 08:59 10/25/18 08:09 Furosemide (Lasix) 40 mg EVERY 12 HOURS IV 10/25/18 09:00 11/22/18 13:59 10/25/18 08:10 Losartan Potassium (Cozaar) 50 mg DAILY ORAL 10/24/18 09:00 11/23/18 08:59 10/25/18 08:09 Pantoprazole (Protonix) 40 mg EVERY 12 HOURS ORAL 10/23/18 21:00 11/22/18 20:59 10/25/18 08:10 Tamsulosin HCl (Flomax) 0.4 mg BEDTIME ORAL 10/23/18 21:00 11/22/18 20:59 10/24/18 20:41 Warfarin Sodium (Coumadin per pharmacy) 1 ea DAILY PRN MISC Per rx protocol 10/23/18 12:00 11/22/18 11:59 Jaydon Mobley MD Oct 25, 2018 09:23
--- NOTE | 2018-10-25 11:30 | NUR ---
NURSE NOTES: Patient up in a chair. Bed linens changed. Patient does not display any signs of distress or SOB. Bed in the lowest position and call ligth within reach.
[2018-10-25 12:00] VITALS: BP 123/78
--- NOTE | 2018-10-25 13:47 | Nephrology Progress Note ---
Assessment/Plan Problem List: (1) Renal failure (ARF), acute on chronic (2) CHF (congestive heart failure) (3) Pacemaker (4) Acute bronchospasm Assessment Renal failure- ? Chronic / Cardio Renal Pacer CHF COPD Anemia Over anti coagulation, INR 7.8 on admit now down to mid 3s Plan Lasix mag supplement Protonix monitor INR parameters for bp meds UA 2D echo pending Anemia schmitt IV Iron Subjective ROS Limited/Unobtainable: No Constitutional: Reports: malaise Objective Objective Last 24 Hour Vital Signs Date Time Temp Pulse Resp B/P (MAP) Pulse Ox O2 Delivery O2 Flow Rate FiO2 10/25/18 12:00 97.3 60 18 123/78 (93) 94 10/25/18 11:53 60 10/25/18 09:00 Nasal Cannula 3.0 10/25/18 08:09 122/54 10/25/18 08:09 60 122/54 10/25/18 07:54 97.3 60 18 122/54 (76) 98 10/25/18 07:51 68 10/25/18 04:00 60 10/25/18 04:00 98.0 60 20 101/40 (60) 100 10/25/18 00:00 60 10/25/18 00:00 97.5 90 20 112/51 (71) 99 10/24/18 21:00 Nasal Cannula 3.0 10/24/18 20:00 98.1 62 20 129/56 (80) 92 10/24/18 20:00 60 10/24/18 16:11 60 10/24/18 15:44 98.1 65 20 119/56 (77) 96 Intake and Output 10/24/18 10/25/18 19:00 07:00 Intake Total 740 ml 120 ml Output Total 1001 ml 1500 ml Balance -261 ml -1380 ml Intake Oral 740 ml IV Total 120 ml Output Urine Total 1001 ml 1500 ml # Voids 3 # Bowel Movements 2 Laboratory Tests 10/25/18 05:57: White Blood Count 5.7, Red Blood Count 3.14L, Hemoglobin 9.6L, Hematocrit 29.8L , Mean Corpuscular Volume 95, Mean Corpuscular Hemoglobin 30.4, Mean Corpuscular Hemoglobin Concent 32.1, Red Cell Distribution Width 15.7H, Platelet Count 183, Mean Platelet Volume 6.1L, Neutrophils (%) (Auto) 61.2, Lymphocytes (%) (Auto) 25.1, Monocytes (%) (Auto) 10.2H, Eosinophils (%) (Auto) 2.3, Basophils (%) (Auto) 1.2, Prothrombin Time 36.9H, Prothromb Time International Ratio 3.8H, Sodium Level 142, Potassium Level 4.2, Chloride Level 102, Carbon Dioxide Level 34H, Anion Gap 6, Blood Urea Nitrogen 32H, Creatinine 1.8H, Estimat Glomerular Filtration Rate , Glucose Level 97, Calcium Level 9.4, Magnesium Level 1.7L Height (Feet): 5 Height (Inches): 4.00 Weight (Pounds): 138 General Appearance: no apparent distress Respiratory/Chest: decreased breath sounds Abdomen: soft Seferino Lezama MD Oct 25, 2018 13:47
[2018-10-25 16:00] VITALS: BP 115/56
--- NOTE | 2018-10-25 16:57 | NUR ---
CASE MANAGEMENT: REVIEW 10/25/2018 SI: DYSPNEA. T 97.7 HR 60 RR 20 B/P 115/56 SATS 98% ON 3L/NC CO2 34 BUN 32 CR 1.8 MG 1.7 TBILI 1.1 ALP 172 IS:PROTONIX PO Q12H LASIX IV Q12H FLOMAX PO QHS LIPITOR PO QHS ARICEPT PO QD PROSCAR PO QD NORVASC PO QD COZAAR PO QD TELE STATUS DCP: PATIENT TO BE DISCHARGED TO HOME ONCE MEDICALLY CLEARED. PLAN OF CARE: CONTINUE DIURESIS 2D echo>> PENDING
[2018-10-25] MEDS: Magnesium Oxide 400mg tab ORAL SCH (17:33)
--- NOTE | 2018-10-25 19:08 | NUR ---
HAND-OFF: Report given to LOLIS Anderson and LOLIS De La Rosa. Patient alert and oriented and does not display any signs of distress or SOB. Bed in the lowest position and call light within reach.
--- NOTE | 2018-10-25 19:30 | NUR ---
NURSE NOTES: received pt in bed resting comfortably. pt in stable condition, safety precaution in place. will make rounds hourly.
[2018-10-25 20:00] VITALS: BP 134/58
[2018-10-25] MEDS: Tamsulosin 0.4mg cap ORAL SCH (20:33)
[2018-10-25] MEDS: Atorvastatin 20mg tab ORAL SCH (20:33)
[2018-10-26] VITALS: BP 129/56
--- NOTE | 2018-10-26 | NUR ---
NURSE NOTES: pt in bed sleeping. no s/s of acute distress noted. will continue to monitor
[2018-10-26 04:00] VITALS: BP 108/47
[2018-10-26 06:47] LABS: INR 2.7 (0.9-1.1)
--- NOTE | 2018-10-26 07:22 | NUR ---
HAND-OFF: Report given to Shasta DANIELLE.pt stable all needs met during my shift
--- NOTE | 2018-10-26 07:58 | NUR ---
NURSE NOTES: received pt in bed resting comfortably. pt in stable condition, safety precaution in place. will make rounds hourly.
[2018-10-26 08:10] VITALS: BP 118/67
[2018-10-26] MEDS: Donepezil 5mg Tab ORAL SCH (08:15)
[2018-10-26] MEDS: Losartan 50mg tab ORAL SCH (08:16)
[2018-10-26] MEDS: Magnesium Oxide 400mg tab ORAL SCH (08:16)
--- NOTE | 2018-10-26 09:29 | Pulmonology Progress Note ---
Assessment/Plan Assessment/Plan 1. Decompensated congestive heart failure. 2. History of lung cancer. 3. COPD. 4. Renal insufficiency. 5. Permanent pacemaker. 6. Chronic Coumadin usage. DISCUSSION: I will continue his home medications. Continue diuresis. Seen by Cardiology [facility] home Jaydon Mobley M.D. Subjective Interval Events: Feeling better Constitutional: Reports: no symptoms HEENT: Repors: no symptoms Respiratory: Reports: no symptoms Cardiovascular: Reports: no symptoms Gastrointestinal/Abdominal: Reports: no symptoms Genitourinary: Reports: no symptoms Neurologic: Reports: no symptoms Allergies: Coded Allergies: No Known Allergies (Unverified , 10/23/18) Objective Last 24 Hour Vital Signs Date Time Temp Pulse Resp B/P (MAP) Pulse Ox O2 Delivery O2 Flow Rate FiO2 10/26/18 08:16 118/67 10/26/18 08:15 60 118/67 10/26/18 08:10 98.4 60 10 118/67 (84) 94 10/26/18 04:00 98.1 64 18 108/47 (67) 93 10/26/18 04:00 60 10/26/18 00:00 60 10/26/18 00:00 98.2 61 17 129/56 (80) 96 10/25/18 21:00 Nasal Cannula 3.0 10/25/18 20:00 97.8 64 19 134/58 (83) 96 10/25/18 20:00 60 10/25/18 16:00 97.7 60 20 115/56 (75) 98 10/25/18 15:48 60 10/25/18 12:00 97.3 60 18 123/78 (93) 94 10/25/18 11:53 60 Intake and Output 10/25/18 10/26/18 19:00 07:00 Intake Total 490 ml 480 ml Output Total 1550 ml 1535 ml Balance -1060 ml -1055 ml Intake Oral 490 ml 480 ml Output Urine Total 1550 ml 1535 ml # Voids 2 General Appearance: no acute distress HEENT: normocephalic Respiratory/Chest: chest wall non-tender Cardiovascular: normal peripheral pulses, regular rhythm Abdomen: normal bowel sounds, soft, non tender Laboratory Tests 10/26/18 05:10: Prothrombin Time 27.0H, Prothromb Time International Ratio 2.7H Current Medications Medications (Trade) Dose Ordered Sig/Jazlyn Route PRN Reason Start Time Stop Time Status Last Admin Dose Admin Amlodipine Besylate (Norvasc) 10 mg DAILY ORAL 10/24/18 09:00 11/23/18 08:59 10/26/18 08:15 Atorvastatin Calcium (Lipitor) 20 mg BEDTIME ORAL 10/24/18 21:00 11/22/18 20:59 10/25/18 20:33 Donepezil HCl (Aricept) 5 mg DAILY ORAL 10/24/18 09:00 11/23/18 08:59 10/26/18 08:15 Finasteride (Proscar) 5 mg DAILY ORAL 10/24/18 09:00 11/23/18 08:59 10/26/18 08:18 Furosemide (Lasix) 40 mg EVERY 12 HOURS IV 10/25/18 09:00 11/22/18 13:59 10/26/18 08:16 Losartan Potassium (Cozaar) 50 mg DAILY ORAL 10/24/18 09:00 11/23/18 08:59 10/26/18 08:16 Magnesium Oxide (Mag-Ox 400mg) 400 mg THREE TIMES A DAY ORAL 10/25/18 18:00 11/24/18 17:59 10/26/18 08:16 Pantoprazole (Protonix) 40 mg EVERY 12 HOURS ORAL 10/23/18 21:00 11/22/18 20:59 10/26/18 08:16 Tamsulosin HCl (Flomax) 0.4 mg BEDTIME ORAL 10/23/18 21:00 11/22/18 20:59 10/25/18 20:33 Warfarin Sodium (Coumadin per pharmacy) 1 ea DAILY PRN MISC Per rx protocol 10/23/18 12:00 11/22/18 11:59 Jaydon Mobley MD Oct 26, 2018 09:29
[2018-10-26] MEDS ORDERED: FUROSEMIDE40 MG ORAL (09:30)
--- NOTE | 2018-10-26 11:03 | Nephrology Progress Note ---
Assessment/Plan Problem List: (1) Renal failure (ARF), acute on chronic (2) CHF (congestive heart failure) (3) Pacemaker (4) Acute bronchospasm Assessment Renal failure- ? Chronic / Cardio Renal Pacer CHF COPD Anemia Over anti coagulation, INR 7.8 on admit now down to mid 2s Plan Lasix change to po mag supplement Protonix monitor INR parameters for bp meds UA 2D echo pending Anemia schmitt IV Iron Agree with DC Subjective ROS Limited/Unobtainable: No Objective Objective Last 24 Hour Vital Signs Date Time Temp Pulse Resp B/P (MAP) Pulse Ox O2 Delivery O2 Flow Rate FiO2 10/26/18 09:00 Nasal Cannula 3.0 10/26/18 08:16 118/67 10/26/18 08:15 60 118/67 10/26/18 08:10 98.4 60 10 118/67 (84) 94 10/26/18 04:00 98.1 64 18 108/47 (67) 93 10/26/18 04:00 60 10/26/18 00:00 60 10/26/18 00:00 98.2 61 17 129/56 (80) 96 10/25/18 21:00 Nasal Cannula 3.0 10/25/18 20:00 97.8 64 19 134/58 (83) 96 10/25/18 20:00 60 10/25/18 16:00 97.7 60 20 115/56 (75) 98 10/25/18 15:48 60 10/25/18 12:00 97.3 60 18 123/78 (93) 94 10/25/18 11:53 60 Intake and Output 10/25/18 10/26/18 19:00 07:00 Intake Total 490 ml 480 ml Output Total 1550 ml 1535 ml Balance -1060 ml -1055 ml Intake Oral 490 ml 480 ml Output Urine Total 1550 ml 1535 ml # Voids 2 Laboratory Tests 10/26/18 05:10: Prothrombin Time 27.0H, Prothromb Time International Ratio 2.7H Height (Feet): 5 Height (Inches): 4.00 Weight (Pounds): 125 General Appearance: no apparent distress Cardiovascular: normal rate Respiratory/Chest: lungs clear Abdomen: soft Objective no change Seferino Lezama MD Oct 26, 2018 11:03
[2018-10-26 12:00] VITALS: BP 132/68
--- NOTE | 2018-10-26 13:27 | NUR ---
NURSE NOTES: patient discharged with all his belonging as ordered. vital signs stable. no c/o pain and SOB.
--- NOTE | 2018-10-27 05:15 | Progress Note ---
DATE: 10/25/2018 CARDIOLOGY PROGRESS NOTE Late entry. SUBJECTIVE: The patient continues to have congestion, but less shortness of breath. He is coughing less. He is able to lie flat. OBJECTIVE: VITAL SIGNS: Blood pressure 122/54, pulse 60, and respiratory rate 18. Monitored rhythm is pace. LUNGS: Better breath sounds. Few rales. HEART: Regular rhythm and rate. Normal S1 and S2. A 1/6 systolic apical murmur. ABDOMEN: Soft. EXTREMITIES: No edema. IMPRESSION: 1. Acute on chronic diastolic congestive heart failure. 2. Chronic obstructive pulmonary disease. 3. Paroxysmal bronchospasm. 4. Chronic kidney disease. 5. Permanent pacemaker. 6. Paroxysmal atrial fibrillation. 7. Warfarin-associated coagulopathy. 8. History of lung cancer. PLAN: 1. Respiratory hygiene. 2. INR goal 2 to 3. 3. Titrate Coumadin. 4. Continue diuresis. 5. Optimize anti-failure regimen. 6. I mobilize and assess functional status. Charles Jarvis M.D. DR: MARTHA JOB#: [id number] CC:
--- NOTE | 2018-10-27 05:30 | Progress Note ---
DATE: 10/26/2018 CARDIOLOGY PROGRESS NOTE SUBJECTIVE: Condition has improved. Congestion has decreased. The patient with no chest pain. He uses BiPAP at times at home. He remains on steroids and bronchodilators. OBJECTIVE: VITAL SIGNS: Blood pressure 118/67, pulse 60, and respiratory rate 18. Monitored rhythm is pace. LUNGS: Coarse breath sounds. No wheezing or rales. HEART: Regular rhythm and rate. Normal S1 and S2. A 1/6 systolic apical murmur at lower left sternal border. ABDOMEN: Soft. EXTREMITIES: No edema. LABORATORY DATA: INR now in the 2.4 range. IMPRESSION: 1. Coagulopathy, resolved. 2. Acute on chronic diastolic congestive heart failure, now clinically compensated. 3. Acute on chronic renal failure, resolved. 4. Paroxysmal bronchospasm, stable. 5. Chronic obstructive pulmonary disease with resolved exacerbation. 6. Permanent pacemaker with stable function. 7. Hypomagnesemia with a magnesium level 1.7. PLAN: 1. Resume anticoagulation and re-dosed INR goal of 2 to 3. 2. IV magnesium. 3. Transition from IV to oral diuretic maintenance dose. 4. Outpatient pulmonary management as previously with equipment. Charles Jarvis M.D. DR: MARTHA JOB#: [id number] CC:
--- NOTE | 2018-10-27 13:00 | Discharge Summary ---
Discharge Summary Discharge Summary _ DATE OF ADMISSION: 10/23/2018 DATE OF DISCHARGE: 10/26/2018 DISCHARGED BY: Dr. Rom Mobley CONSULTANTS: Dr. Charles Lezama BRIEF HOSPITAL COURSE: Patient is a 83-year-old male, with history of lung CA, status post 2 prior lung surgery. Lung cancer apparently was in remission. Patient reported he had a pacemaker placed on the left side of the chest. Patient was taking Coumadin. He presented to the hospital complaining of shortness of breath. Family noticed that patient was breathing heavier than usual. EMS was called. On evaluation at ED, blood work did not show any leukocytosis. Hemoglobin was 10, hematocrit 31. BUN 24, creatinine 1.6. Troponin was negative. ProBNP was 3472. INR is 7.8. He had an EKG done that showed atrial fibrillation with paced rhythm. Chest x-ray showed CHF/interstitial edema and bilateral pleural effusions. ABG showed pH of 7.28, CO2 49, bicarb 23, O2 saturation of 62. BiPAP was initially placed at ED. He was then admitted for evaluation of decompensated heart failure. He was given nebulizer treatment. He was given low-dose steroids. INR was elevated, Coumadin was placed on hold. She was given diuresis. Lipid panel was checked. Patient was on dual antilipid medication. Zetia was discontinued. He was continued on Lipitor. Anemia workup showed serum iron 34 , % saturation 13, ferritin 66. Folate and B12 were normal. TSH normal. Congestion decreased. Condition improved. Coagulopathy resolved. He was discharged home. FINAL DIAGNOSES: Acute on chronic diastolic congestive heart failure Acute on chronic renal failure, resolved Paroxysmal bronchospasm History of lung CA COPD with resolved exacerbation Permanent pacemaker with stable function Hypercoagulable state, on chronic Coumadin use Hypomagnesemia Iron deficiency anemia Pleural effusion DISPOSITION: Patient was discharged home. DISCHARGE MEDICATIONS: Refer to Discharge Medication List. DISCHARGE INSTRUCTIONS: Follow-up in a week. I have been assigned to complete a discharge summary on this account, I was not involved with the patient's management. Shobha Chavez NP Oct 27, 2018 13:00
--- NOTE | 2018-10-28 20:06 | Cardiology Report ---
APPROVED REPORT EXAM: Two-dimensional and M-mode echocardiogram with Doppler and color Doppler. INDICATION Congestive Heart Failure M-Mode DIMENSIONS IVSd0.5 (0.7-1.1cm)Left Atrium (MM)4.8 (1.6-4.0cm) LVDd6.0 (3.5-5.6cm)Aortic Root3.7 (2.0-3.7cm) PWd0.8 (0.7-1.1cm)Aortic Cusp Exc.1.9 (1.5-2.0cm) LVDs4.5 (2.5-4.0cm) PWs1.1 cm Normal left ventricular chamber size, systolic function and wall motion. Left ventricular ejection fraction estimated to be 55 %. No evidence of left ventricular hypertrophy. Anterior Echo-free space, may be due to pericardial fat or effusion. Moderate bi-atrial enlargement. Right ventricular chamber is mildly enlarged. Focal aortic valve sclerosis with adequate cusp excursion. Thickened mitral valve leaflets with normal excursion. Mitral annulus and aortic root calcification. Pulmonic valve not well visualized. Normal tricuspid valve structure. IVC dilated at 2.6 cm with no physiologic collapse, suggestive of increased RA pressure at 15 mmHg. Pacemaker wire present in the right side chambers. A color flow and spectral Doppler study was performed and revealed: Mild aortic inssuficiency. Moderate mitral regurgitation. Diastolic function not determined due to arrhythmia. Moderate tricuspid regurgitation. Tricuspid systolic velocities suggests peak right ventricular systolic pressure of 62 mmHg, consistent with severe pulmonary hypertension. Moderate pulmonic regurgitation present.
== END 2018-10-26 13:17 | disposition home or self-care (01) | DRG 291 ==
LOC: EDBD 08:01 → EMR 08:15 → 2E 08:34 → EDBEDREQ 09:21 → 2E 10-24 16:36
DX: I13.0 Hypertensive heart and chronic kidney disease with heart failure and stage 1 through stage 4 chronic kidney disease, or unspecified chronic kidney disease (principal); I50.33 Acute on chronic diastolic (congestive) heart failure; N17.9 Acute kidney failure, unspecified; J44.1 Chronic obstructive pulmonary disease with (acute) exacerbation; E87.2 Acidosis; N18.9 Chronic kidney disease, unspecified; Z95.0 Presence of cardiac pacemaker; Z85.118 Personal history of other malignant neoplasm of bronchus and lung; Z79.01 Long term (current) use of anticoagulants; R79.1 Abnormal coagulation profile; E83.42 Hypomagnesemia; D50.9 Iron deficiency anemia, unspecified; Z87.891 Personal history of nicotine dependence; I48.0 Paroxysmal atrial fibrillation; J98.01 Acute bronchospasm
CPT/HCPCS: 36415; 36600; 71045; 80048; 80053; 80061; 81001; 82248; 82550; 82553; 82607; 82728; 82746; 82803; 82962; 82977; 83036; 83540; 83550; 83690; 83735; 83880; 84100; 84443; 84484; 84550; 85025; 85610; 85730; 86140; 87040; 93005; 93306; 96374; 99291